=== PATIENT | female | born 2000 | race Caucasian/White ===

== ENCOUNTER 2023-07-14 10:19 | Emergency (ER) | payer OTHER ==
[~2023-07-14] VITALS: Ht 167.7 cm; Wt 81.6 kg
[2023-07-14 11:03] VITALS: BP 120/72
== END 2023-07-14 11:08 | disposition home or self-care (01) ==
LOC: EDUNIT# 10:19 → ER 10:21
DX: Z48.02 Encounter for removal of sutures (principal)